=== PATIENT | male | born 1970 | race Hispanic/Latino ===

== ENCOUNTER 2016-09-28 09:45 | Emergency (ER) | payer OTHER ==
[~2016-09-28] VITALS: Ht 177.8 cm; Wt 109.0 kg
[~2016-09-28 09:45] MED LIST: BACTRIM DS1 TAB PO; CEPHALEXIN500 MG PO; PENICILLN VK500 MG PO
[2016-09-28 10:45] LABS: INTERNATIONAL NORMALIZED RATIO 0.9 RATIO (0.7-1.3)
[2016-09-28 10:53] LABS: ALBUMIN 4.3 g/dL (3.2-5.0); ALKALINE PHOSPHATASE 103 u/l (38-126); ANION GAP 16 (6-22 (CALC)); BILIRUBIN, TOTAL 0.5 mg/dL (0.0-1.4); BUN 17 mg/dL (9-20); BUN/CREATININE RATIO 20 (12-20 (CALC)); CALCIUM 8.9 mg/dL (8.4-10.2); CARBON DIOXIDE 25 mmol/l (22-30); CHLORIDE 102 mmol/l (95-108); CREATININE 0.9 mg/dL (0.7-1.3); GFR > 60 ML/MIN (>=60 (CALC)); GFR FOR AFR.AMER. > 60 ML/MIN (>=60 (CALC)); GLUCOSE 116 mg/dL (75-110); SGOT/AST 46 u/l (17-59); SGPT/ALT 33 u/l (21-72); SODIUM 138 mmol/l (137-146); TOTAL PROTEIN 7.2 g/dL (6.3-8.2)
[2016-09-28 10:56] LABS: HEMATOCRIT 27.2 % (39.0-50.0); HEMOGLOBIN 7.4 g/dl (14.0-18.0); IMMATURE GRANULOCYTES 0.6 % (0.0-1.0); MEAN CELL VOLUME 63.8 fL CALC (80.0-100.0); MEAN CORPUSCULAR HGB 17.4 pG CALC (26.0-32.0); MEAN CORPUSCULAR HGB CONC 27.2 g/L CALC (32.0-36.0); NEUT# 4.8 thou/uL (1.82-7.42); RED BLOOD COUNT 4.26 mill/uL (4.70-6.10); RED CELL DISTRI WIDTH 17.8 % (11.5-15.5)
[2016-09-28 11:05] LABS: MYOGLOBIN 27 ng/mL (0 - 121)
[2016-09-28 11:35] VITALS: BP 123/72
== END 2016-09-28 11:45 | disposition short-term general hospital (02) | DRG 300 ==
LOC: ED 09:45
PROVIDERS: Emergency Medicine
DX: I82.401 Acute embolism and thrombosis of unspecified deep veins of right lower extremity (principal); K92.2 Gastrointestinal hemorrhage, unspecified; D50.0 Iron deficiency anemia secondary to blood loss (chronic); V86.99XA Unspecified occupant of other special all-terrain or other off-road motor vehicle injured in nontraffic accident, initial encounter; Y93.89 Activity, other specified; Y92.89 Other specified places as the place of occurrence of the external cause
CPT/HCPCS: J1650